=== PATIENT | male | born 1960 | race Caucasian/White ===

== ENCOUNTER 2019-03-06 06:12 | Day surgery (SDC) | payer BC ==
[~2019-03-06 06:12] MED LIST: Lactated Ringers 1,000 ML IV SCH; Sodium Chloride 0.9% 10 ML Syringe FLUSH PRN
[2019-03-06] MEDS: Lactated Ringers 1,000 ML IV SCH (07:10)
[2019-03-06] MEDS ORDERED: fentaNYL 100 MCG/2 ML SDV ONE (07:26)
[2019-03-06] MEDS ORDERED: Propofol 200 MG/20 ML SDV ONE (07:26)
--- NOTE | 2019-03-06 13:55 | OR ---
PREOPERATIVE DIAGNOSIS: Family history of colon polyps and personal history of benign colon polyps. POSTOPERATIVE DIAGNOSIS: Family history of colon polyps and personal history of benign colon polyps. PROCEDURE: Colonoscopy. ANESTHESIA: MAC. FINDINGS: Internal hemorrhoids, otherwise normal colon. DETAILS OF PROCEDURE: After obtaining informed consent, the patient was brought to the operating room and placed under monitored anesthesia care. He was then positioned and digital rectal exam was performed. A colonoscope equipped with Endocuff device was inserted and traversed to the cecum with ease. The cecum was identified with the appendiceal orifice and ileocecal valve. There was a moderate amount of liquid stool which was suctioned, and we then removed the scope over approximately 10 minutes and we found no polyps. We did find multiple circumferential internal hemorrhoids on retroflex. He tolerated the procedure well. He should have a repeat colonoscopy in 10 years. CJM: 03/06/2019 08:41:34 MODL: 03/06/2019 13:47:35 /[id number]
== END 2019-03-06 09:33 | disposition home or self-care (01) ==
LOC: VM.SDS 06:12
PROVIDERS: ATTEND Surgery
DX: Z12.11 Encounter for screening for malignant neoplasm of colon (principal); K64.8 Other hemorrhoids; E11.9 Type 2 diabetes mellitus without complications; I10 Essential (primary) hypertension; E78.5 Hyperlipidemia, unspecified; N40.1 Benign prostatic hyperplasia with lower urinary tract symptoms; R35.0 Frequency of micturition; G47.33 Obstructive sleep apnea (adult) (pediatric); H52.10 Myopia, unspecified eye; H52.4 Presbyopia; Z87.891 Personal history of nicotine dependence; Z86.010 Personal history of colon polyps; Z79.4 Long term (current) use of insulin; Z79.84 Long term (current) use of oral hypoglycemic drugs; Z79.899 Other long term (current) drug therapy; Z91.030 Bee allergy status; Z88.0 Allergy status to penicillin; Z88.1 Allergy status to other antibiotic agents; Z80.0 Family history of malignant neoplasm of digestive organs
CPT/HCPCS: 82962; J2704; J3010; J7120

== ENCOUNTER 2020-09-24 06:43 | Day surgery (SDC) | payer BC ==
[2020-09-24] MEDS ORDERED: Lactated Ringers 1,000 ML IV SCH (07:00)
[2020-09-24] MEDS ORDERED: fentaNYL 100 MCG/2 ML SDV ONE (08:07)
[2020-09-24] MEDS ORDERED: Propofol 200 MG/20 ML SDV ONE (08:07)
--- NOTE | 2020-09-25 08:11 | OR ---
SURGERY DATE: 09/24/2020. REFERRING PROVIDER: KM Parkinson PRE-OPERATIVE DIAGNOSIS: Gastritis/upset stomach. This is the patient's first esophagogastroduodenoscopy. He is currently on Pepcid 20 mg twice a day which has helped with his symptoms, but not completely. He denies any dysphagia. Denies any tobacco use, and only rare alcohol use. Triggers for his symptoms can be coffee or pop. He does use occasional ibuprofen. POST-OPERATIVE DIAGNOSES: 1. Minimal gastritis noted. Antral biopsy x2 bites taken for path and Helicobacter pylori. 2. A few scattered benign-appearing fundic-type polyps noted. These were all less than 1 cm in size. Largest 1 within the fundus with biopsy x2 bites. PROCEDURE: Esophagogastroduodenoscopy with biopsy x2 sites using cold forceps. SURGEON: Jayson Mar M.D. ANESTHESIA: Monitored anesthesia care. Talha is a 60-year-old male who was brought to the endoscope suite after discussion of risks and benefits (including but not limited to reaction to medication, bleeding, infection, aspiration, perforation). Informed consent was obtained for monitored anesthesia care and esophagogastroduodenoscopy along with possible biopsy and/or dilatation. Pre-procedure exam including oral cavity unremarkable. IV, oxygen, and monitors were placed. Patient was placed in the left lateral position and sedation was administered. A bite block was placed gently and scope lightly lubricated and passed through the bite block and over the tongue. Hypopharynx and vocal cords were visualized and unremarkable. Scope was passed through the cricopharynx and into the esophagus. The scope was then passed through the distal esophagus and the GE junction was visualized and photographed. The GE junction was unremarkable. Vocal cords were visualized and unremarkable. The scope was advanced into the stomach and gastric galvez was suctioned. Pylorus was identified and intubated and then the scope was advanced to the third portion of the duodenum. The second and third portions of the duodenum were unremarkable. The duodenal bulb was visualized and unremarkable. The scope was brought back into the stomach. The pylorus and the antrum were remarkable for some minimal gastritis. Cold biopsy x2 bites was taken from this area to check for H. pylori and sent for path. The scope was retroflexed to visualize the angularis, fundus, body, and cardia. These were remarkable for a few scattered benign- appearing fundic-type polyps. These were all less than 1 cm in size. One of the larger ones within the fundus was biopsied x2 bites. The stomach was desufflated of air and then the scope was slowly withdrawn, and the esophagus was closely visualized during withdrawal all the way into the posterior pharynx and this was unremarkable. The patient tolerated the procedure well and went to recovery in stable condition. The patient was monitored until at baseline status. Findings and discharge instructions were reviewed and the patient was discharged in good condition. COMPLICATIONS: None. TOTAL TIME: 8 minutes. ESTIMATED BLOOD LOSS: About 1 mL. RECOMMENDATIONS/FOLLOW-UP: Given his ongoing symptoms despite the use of Pepcid 20 mg twice a day, we discussed changing this to omeprazole 20 mg daily for at least 4 to 8 weeks. He can consult with his PCP after that to see if dose needs to be titrated up or if he can go back down to either Pepcid once or twice a day or go off completely. We will have him hold his aspirin today and tomorrow, he can resume Monday. I would like to kindly thank Ck Longoria for this referral. DMB: 09/24/2020 09:37:16 MODL: 09/24/2020 17:10:28 /[id number]
== END 2020-09-24 09:35 | disposition home or self-care (01) ==
LOC: VM.SDS 06:43
PROVIDERS: ATTEND Family Medicine
DX: K29.70 Gastritis, unspecified, without bleeding (principal); K31.7 Polyp of stomach and duodenum; E78.5 Hyperlipidemia, unspecified; E11.9 Type 2 diabetes mellitus without complications; G47.33 Obstructive sleep apnea (adult) (pediatric); Z86.010 Personal history of colon polyps; N40.0 Benign prostatic hyperplasia without lower urinary tract symptoms; Z80.0 Family history of malignant neoplasm of digestive organs; Z88.8 Allergy status to other drugs, medicaments and biological substances
CPT/HCPCS: 00731; 82947; J2704; J3010; J7120

== ENCOUNTER 2024-07-25 07:01 | Day surgery (SDC) | payer MEDICARE, BC ==
[2024-07-25] MEDS: Lactated Ringers 1,000 ML IV SCH (07:16)
[2024-07-25] MEDS ORDERED: Propofol 200 MG/20 ML SDV ONE ×2 (08:07→08:48)
[2024-07-25] MEDS ORDERED: Midazolam 1 MG/ML 2 ML SDV ONE (08:07)
[2024-07-25] MEDS ORDERED: fentaNYL 100 MCG/2 ML SDV ONE (08:07)
== END 2024-07-25 09:45 | disposition home or self-care (01) ==
LOC: VM.SDS 07:01
PROVIDERS: ATTEND Family Medicine
DX: Z12.11 Encounter for screening for malignant neoplasm of colon (principal); K62.1 Rectal polyp; K52.9 Noninfective gastroenteritis and colitis, unspecified; K64.8 Other hemorrhoids; Z86.0100 Personal history of colon polyps, unspecified; I10 Essential (primary) hypertension; E78.5 Hyperlipidemia, unspecified; E11.9 Type 2 diabetes mellitus without complications; Z79.84 Long term (current) use of oral hypoglycemic drugs; Z79.899 Other long term (current) drug therapy; Z88.0 Allergy status to penicillin; Z91.030 Bee allergy status; Z88.1 Allergy status to other antibiotic agents
CPT/HCPCS: 82947; 88305; J2250; J2704; J3010; J7120